=== PATIENT | female | born 1990 | race Two or more races ===

== ENCOUNTER 2022-08-13 13:35 | Emergency (ER) | payer SELFPAY ==
[~2022-08-13] VITALS: Ht 167.6 cm; Wt 55.0 kg
[2022-08-13 13:40] VITALS: BP 100/64
== END 2022-08-13 15:10 | disposition home or self-care (01) ==
LOC: ER 13:35
DX: F41.9 Anxiety disorder, unspecified (principal); Z59.00 Homelessness unspecified; Z87.891 Personal history of nicotine dependence; F32.9 Major depressive disorder, single episode, unspecified
CPT/HCPCS: 81025; 99282